=== PATIENT | male | born 1990 | race Caucasian/White ===

== ENCOUNTER 2017-04-14 19:43 | Emergency (ER) | payer OTHER ==
[~2017-04-14] VITALS: Ht 182.9 cm; Wt 102.1 kg
[~2017-04-14 19:43] MED LIST: IBUP600 PO; OXYACE5T PO
== END 2017-04-14 20:56 | disposition home or self-care (01) ==
LOC: ER 19:43
DX: S01.81XA Laceration without foreign body of other part of head, initial encounter (principal); W22.8XXA Striking against or struck by other objects, initial encounter
CPT/HCPCS: 12001; 99283